=== PATIENT | male | born 1985 | race Two or more races ===

== ENCOUNTER 2019-11-13 10:07 | Inpatient (IN) | payer OTHER ==
[~2019-11-13] VITALS: Ht 170.2 cm; Wt 73.5 kg
--- NOTE | 2019-11-13 10:23 | NUR ---
TO CT PER JUDITH
--- NOTE | 2019-11-13 10:50 | NUR ---
RETURNED FROM CT. C-COLLAR PRESENT, SIDE RAILS UP X2. RESP EVEN & UNLABORED, SPEECH CLEAR, MONITORING EQUIPMENT REAPPLIED. PT ORIENTED TO PERSON, . PT STATED HE TRAVELED TO [place], BUT UNABLE TO RECALL WHEN.
--- NOTE | 2019-11-13 11:12 | NUR ---
PT'S SISTER CALLED FOR PT STATUS. VERBAL PERMISSION FOR RELEASE OF INFO PROVIDED BY PT. GENERAL INFORMATION PROVIDED. SISTER: GONZALEZ ELLISON MD ([employer] WORK[employer]) [birth year]/08/1981, TEL [phone]. PT'S SPOUSE: JANETTE CARBAJAL TEL [phone]
--- NOTE | 2019-11-13 11:25 | NUR ---
PT WAS CLEARED OF C-COLLER PER DR MADRIGAL. PT TO BE ADMITTED.
[2019-11-13] MEDS ORDERED: SODIUM CHLORIDE FLUSH 10ML SYR IVF ONE (11:30)
--- NOTE | 2019-11-13 12:03 | NUR ---
DR BAUGH BS FOR EXAM. PT'S SPOUSE IN ROOM. PT ORIENTED TO NAME, , MONTH, WHEN HE WENT TO [facility] ([place]). C/O BHARDWAJ. PER DR BAUGH, PT MAY HAVE ICE CHIPS AND SMALL SIPS OF WATER. VO: MORPHINE 2-4MG/HR PRN PAIN.
[2019-11-13 12:18] LABS: BASOPHILS # (AUTO) 0.02 x10^3/uL (0-0.1); BASOPHILS % (AUTO) 0 % (0-1); EOSINOPHILS # (AUTO) 0.04 x10^3/uL (0-0.4); EOSINOPHILS % (AUTO) 0 % (1-7); LYMPHOCYTES # (AUTO) 1.48 x10^3/uL (1-3.4); LYMPHOCYTES % (AUTO) 12 % (22-44); MD NO; MEAN CORPUSCULAR HEMOGLOBIN 27.6 pg (27.5-34.5); MEAN CORPUSCULAR HGB CONC 33.4 g/dL (33.2-36.2); MEAN CORPUSCULAR VOLUME 82.7 fL (81-97); MEAN PLATELET VOLUME 8.7 fL (7.4-10.4); MONOCYTES # (AUTO) 0.57 x10^3/uL (0.2-0.8); MONOCYTES % (AUTO) 5 % (2-9); NEUTROPHILS # (AUTO) 9.78 x10^3/uL (1.8-6.8); NEUTROPHILS % (AUTO) 82 % (42-75); PLATELET COUNT 231 x10^3/uL (130-400); RED BLOOD COUNT 5.64 x10^6/uL (4.38-5.82)
[2019-11-13 12:27] LABS: INTERNATIONAL NORMALIZED RATIO 1.07 (0.93-1.1); PROTHROMBIN TIME 11.3 Seconds (9.6-11.5)
[2019-11-13 12:31] LABS: ALANINE AMINOTRANSFERASE 25 U/L (12-78); ALBUMIN 3.7 g/dL (3.4-5.0); ANION GAP 6 mmol/L (5-15); CHLORIDE 107 mmol/L (98-107)
[2019-11-13 12:34] LABS: ALKALINE PHOSPHATASE 98 U/L (45-117); BILIRUBIN,TOTAL 0.5 mg/dL (0.2-1.0); CREATININE 0.99 mg/dL (0.7-1.3); TOTAL PROTEIN 7.5 g/dL (6.4-8.2)
[2019-11-13] MEDS ORDERED: MORPHINE SULFATE 4 MG/ML, 1ML ONE (12:49)
[2019-11-13] MEDS ORDERED: ACETAMINOPHEN 325 MG TABLET PO PRN (13:00)
[2019-11-13] MEDS ORDERED: ENALAPRILAT 1.25 MG/ML, 2ML IVPush PRN (13:00)
[2019-11-13] MEDS ORDERED: PLEASE ENTER ALLERGIES MC SCH (13:00)
[2019-11-13] MEDS ORDERED: ACETAMINOPHEN 325 MG TABLET PO ONE (13:00)
[2019-11-13] MEDS ORDERED: LABETALOL 5MG/ML, 20ML IVPush PRN (13:00)
[2019-11-13] MEDS ORDERED: MORPHINE SULFATE 4 MG/ML, 1ML IVPush ONE (13:00)
[2019-11-13] MEDS ORDERED: ONDANSETRON 2MG/ML, 2ML IVPush PRN (13:00)
--- NOTE | 2019-11-13 13:03 | NUR ---
VO DR MADRIGAL: GIVE MORPHINE NOW INSTEAD OF TYLENOL.
--- NOTE | 2019-11-13 13:26 | NUR ---
CALLED CCU TO GIVE REPORT. UNIT WILL CONFIRM PT ROOM AND RECEIVING RN AND CALL THIS RN BACK.
--- NOTE | 2019-11-13 13:45 | NUR ---
PT SLEEPING, RESP EVEN & UNLABORED. SPOUSE IN ROOM; NOTIFIED OF TEMPORARY HOLD STATUS.
--- NOTE | 2019-11-13 14:33 | NUR ---
PT SLEEPING; EASILY AWAKENED, OPENED EYES AND ANSWERED QUESTIONS. TO CT PER JUDITH
--- NOTE | 2019-11-13 16:20 | NUR ---
CALL FROM ED,RECEIVING RN RE: PT STATUS. RN REQUESTED CALL BACK IN 30 MINS W/ PT REPORT DUE TO JUST RECEIVING A DIFFERENT CCU PATIENT. PT CURRENTLY IN STABLE CONDITION; SPOUSE IN ROOM.
[2019-11-13] MEDS: SODIUM CHLORIDE 0.9% 1,000 ML IV SCH ×2 (16:31→23:33)
--- NOTE | 2019-11-13 16:32 | NUR ---
PT ASLEEP; EASILY AWAKENED. A&OX4, REMEMBERS FALLING WHILE SKATEBOARDING, RESP EVEN & UNLABORED, SPEECH CLEAR, SKIN WNL, MONITORING CONTINUING: NSR. NS HUNG, INFUSING AT 150ML/HR VIA PUMP; IV SITE PATENT.
--- NOTE | 2019-11-13 16:57 | NUR ---
PT REPORT TO SHAN WARD FOR ROOM 546
[2019-11-14 07:23] LABS: ANION GAP 5 mmol/L (5-15); CALCIUM 8.4 mg/dL (8.5-10.1); CHLORIDE 107 mmol/L (98-107); CREATININE 0.78 mg/dL (0.7-1.3)
[2019-11-14] MEDS: SODIUM CHLORIDE 0.9% 1,000 ML IV SCH ×3 (08:06→22:15)
[2019-11-14] MEDS: LEVETIRACETAM 500 MG TABLET PO SCH ×2 (10:54→20:08)
[2019-11-14 12:49] VITALS: BP 107/67
[2019-11-14 20:00] VITALS: BP 108/68
[2019-11-15 00:55] VITALS: BP 107/65
[2019-11-15] MEDS: SODIUM CHLORIDE 0.9% 1,000 ML IV SCH ×2 (05:28→11:20)
[2019-11-15 06:56] VITALS: BP 106/66
[2019-11-15] MEDS: LEVETIRACETAM 500 MG TABLET PO SCH (08:32)
[2019-11-15] MEDS ORDERED: LEVE500T53 PO (11:42)
[2019-11-15 13:04] VITALS: BP 102/63
== END 2019-11-15 13:50 | disposition home or self-care (01) | DRG 82 ==
LOC: ED 11:25 → EDIP 11:26 → ED 11:33 → CCU 17:15 → 4WST 11-14 12:40
PROVIDERS: ADMIT Internal Medicine; ATTEND Family Medicine
DX: S06.5X9A Traumatic subdural hemorrhage with loss of consciousness of unspecified duration, initial encounter (principal); G93.5 Compression of brain; R41.2 Retrograde amnesia; V00.131A Fall from skateboard, initial encounter; Y93.51 Activity, roller skating (inline) and skateboarding; Y92.89 Other specified places as the place of occurrence of the external cause; Z82.49 Family history of ischemic heart disease and other diseases of the circulatory system; Z83.3 Family history of diabetes mellitus; Y99.8 Other external cause status
CPT/HCPCS: 36415; 70450; 72125; 80048; 80053; 85025; 85610; 87081; 96374; 99285; G0378; J2270; J7030

== ENCOUNTER 2019-11-17 20:26 | Inpatient (IN) | payer OTHER ==
[~2019-11-17] VITALS: Ht 170.2 cm; Wt 67.8 kg
[~2019-11-17 20:26] MED LIST: LEVE500T53 PO
[2019-11-17] MEDS ORDERED: PERCOCET (20:45)
[2019-11-17] MEDS ORDERED: HYDR-3240 PO (20:45)
--- NOTE | 2019-11-17 20:45 | NUR ---
TASK RN: JODY MITCHELL FROM HOME IN MODERATE DISTRESS SECONDARY TO CO 9/10 HEADACHE. PT DC'D FROM [facility] FOLLOWING FALL FROM [place] [employer]. NO SURGICAL INTERVENTION WITH ADMITTED CT SHOWED EVIDENCE OF IMPROVEMENT. SO STATES PT HAS HAD BHARDWAJ SINCE DC. +PHOTOPHOBIA/PHONOPHOBIA, DENIES N/V. GROSS NEURO INTACT. UNABLE TO EXAMINE PUPIL RESPONSE PT IS SENSITIVE TO LIGHT IMPROVED BHARDWAJ LAST NIGHT WITH TRAMADOL, NO CHANGE TODAY WITH NORCO OR PERCOCET. SO IS CONCERNED THAT PATIENT MISSED [address] DOSE. PRIMARY RN AWARE. REPORT TO PRIMARY RN JOSHUA.
--- NOTE | 2019-11-17 21:16 | NUR ---
IN ROOM FOR EVAL.
[2019-11-17] MEDS ORDERED: ONDANSETRON 2MG/ML, 2ML IVPush ONE (21:30)
[2019-11-17] MEDS ORDERED: ONDANSETRON 2MG/ML, 2ML ONE (21:32)
[2019-11-17] MEDS ORDERED: MORPHINE SULFATE 4 MG/ML, 1ML ONE ×2 (21:32→23:25)
[2019-11-17] MEDS: MORPHINE SULFATE 4 MG/ML, 1ML IVPush PRN ×2 (21:34→23:33)
[2019-11-17 21:53] LABS: BASOPHILS # (AUTO) 0.11 x10^3/uL (0-0.1); BASOPHILS % (AUTO) 1 % (0-1); EOSINOPHILS # (AUTO) 0.02 x10^3/uL (0-0.4); EOSINOPHILS % (AUTO) 0 % (1-7); LYMPHOCYTES # (AUTO) 1.38 x10^3/uL (1-3.4); LYMPHOCYTES % (AUTO) 12 % (22-44); MD NO; MEAN CORPUSCULAR HEMOGLOBIN 27.5 pg (27.5-34.5); MEAN CORPUSCULAR HGB CONC 33.6 g/dL (33.2-36.2); MEAN CORPUSCULAR VOLUME 81.9 fL (81-97); MEAN PLATELET VOLUME 7.7 fL (7.4-10.4); MONOCYTES # (AUTO) 0.76 x10^3/uL (0.2-0.8); MONOCYTES % (AUTO) 7 % (2-9); NEUTROPHILS # (AUTO) 8.85 x10^3/uL (1.8-6.8); NEUTROPHILS % (AUTO) 80 % (42-75); PLATELET COUNT 257 x10^3/uL (130-400); RED BLOOD COUNT 5.32 x10^6/uL (4.38-5.82); RED CELL DISTRIBUTION WIDTH 12.5 % (9.4-14.8)
[2019-11-17] MEDS ORDERED: LEVETIRACETAM 500 MG in SODIUM CHLORIDE 0.9% 100 ML IV ONE (22:00)
[2019-11-17 22:02] LABS: ALBUMIN 3.4 g/dL (3.4-5.0); ANION GAP 6 mmol/L (5-15); CALCIUM 9.1 mg/dL (8.5-10.1); CHLORIDE 103 mmol/L (98-107); CREATININE 0.78 mg/dL (0.7-1.3)
--- NOTE | 2019-11-17 22:53 | NUR ---
PT RESTING ON GURNEY W/ CALL LIGHT IN REACH. CONNECTED TO ALL MONITORING, VS STABLE. SIDE RAILS UPX2, FAMILY AT BEDSIDE. PT IS UP FOR RECHECK AT THIS TIME. DENIES FURTHER NEEDS.
--- NOTE | 2019-11-17 23:03 | NUR ---
NEURO SURG PAGED
[2019-11-18] MEDS ORDERED: ONDANSETRON ODT 4 MG PO PRN
[2019-11-18] MEDS ORDERED: BISACODYL 10 MG SUPP PR PRN
[2019-11-18] MEDS ORDERED: POLYETHYLENE GLYCOL 17 GM PACKET PO PRN
--- NOTE | 2019-11-18 00:10 | NUR ---
ADMITTING RN REQ DIFFERENT PAIN MEDS TO HAVE PRN BECAUSE PER PT NORCO PROVIDED NO RELIEF TODAY. SPOKE WITH DANIEL ADMITTING PROVIDER AND HE STATES HE WILL PUT IN ANOTHER ORDER.
[2019-11-18 00:35] VITALS: BP 131/82
[2019-11-18] MEDS: HYDROcodone/APAP 5/325 TABLET PO PRN ×2 (04:43→05:43)
[2019-11-18 07:15] VITALS: BP 113/72
[2019-11-18] MEDS ORDERED: SENNA/DOCUSATE TABLET PO SCH (09:00)
[2019-11-18] MEDS: SODIUM CHLORIDE FLUSH 10ML SYR IVF SCH ×3 (09:00→20:44)
[2019-11-18] MEDS: BUTALB/APAP/CAFFEINE 50MG/325MG/40MG PO PRN ×2 (09:42→17:54)
[2019-11-18] MEDS: LEVETIRACETAM 500 MG TABLET PO SCH ×2 (09:42→20:43)
[2019-11-18] MEDS ORDERED: SUMATRIPTAN 6MG/0.5ML SQ PRN (14:30)
[2019-11-18] MEDS ORDERED: VALPROATE SODIUM 500 MG in SODIUM CHLORIDE 0.9% 100 ML IV SCH (15:00)
[2019-11-18 15:39] LABS: INTERNATIONAL NORMALIZED RATIO 1.07 (0.93-1.1); PROTHROMBIN TIME 11.4 Seconds (9.6-11.5)
[2019-11-18 19:32] VITALS: BP 135/86
[2019-11-19] MEDS: BUTALB/APAP/CAFFEINE 50MG/325MG/40MG PO PRN ×4 (00:01→18:18)
[2019-11-19 01:15] VITALS: BP 110/72
[2019-11-19 05:28] LABS: BASOPHILS # (AUTO) 0.02 x10^3/uL (0-0.1); BASOPHILS % (AUTO) 0 % (0-1); EOSINOPHILS # (AUTO) 0.03 x10^3/uL (0-0.4); EOSINOPHILS % (AUTO) 0 % (1-7); LYMPHOCYTES # (AUTO) 1.08 x10^3/uL (1-3.4); LYMPHOCYTES % (AUTO) 14 % (22-44); MD NO; MEAN CORPUSCULAR HEMOGLOBIN 27.7 pg (27.5-34.5); MEAN CORPUSCULAR HGB CONC 33.9 g/dL (33.2-36.2); MEAN CORPUSCULAR VOLUME 81.7 fL (81-97); MEAN PLATELET VOLUME 8.2 fL (7.4-10.4); MONOCYTES # (AUTO) 0.19 x10^3/uL (0.2-0.8); MONOCYTES % (AUTO) 3 % (2-9); NEUTROPHILS # (AUTO) 6.29 x10^3/uL (1.8-6.8); NEUTROPHILS % (AUTO) 83 % (42-75); PLATELET COUNT 263 x10^3/uL (130-400); RED BLOOD COUNT 5.34 x10^6/uL (4.38-5.82); RED CELL DISTRIBUTION WIDTH 12.6 % (9.4-14.8)
[2019-11-19 05:42] LABS: ANION GAP 7 mmol/L (5-15); CALCIUM 9.2 mg/dL (8.5-10.1); CHLORIDE 102 mmol/L (98-107); CREATININE 0.94 mg/dL (0.7-1.3)
[2019-11-19 07:45] VITALS: BP 99/65
[2019-11-19] MEDS: LEVETIRACETAM 500 MG TABLET PO SCH ×2 (09:03→20:58)
[2019-11-19] MEDS: SODIUM CHLORIDE FLUSH 10ML SYR IVF SCH ×2 (09:03→20:59)
[2019-11-19] MEDS: SENNA/DOCUSATE TABLET PO PRN (09:03)
[2019-11-19] MEDS: LACTATED RINGERS 1,000 ML IV SCH (09:04)
[2019-11-19] MEDS ORDERED: BUPIVACAINE/PF-EPI 0.5% 1:200K ONE (09:39)
[2019-11-19] MEDS ORDERED: BACITRACIN OINT 500U/GM, 15 GM ONE (09:39)
[2019-11-19] MEDS ORDERED: THROMBIN 20,000 UNIT VIAL TP ONE (09:39)
[2019-11-19] MEDS ORDERED: BACITRACIN 50,000 UNIT ONE (09:39)
[2019-11-19] MEDS: SODIUM CHLORIDE 1 GM TABLET PO SCH ×3 (10:00→20:58)
[2019-11-19] MEDS: D5%-0.9% NACL+KCL 20MEQ 1,000 ML IV SCH ×2 (10:25→18:15)
[2019-11-19 13:00] VITALS: BP 117/83
[2019-11-19] MEDS: GABAPENTIN 300 MG CAPSULE PO SCH ×2 (16:06→20:58)
[2019-11-19 18:56] VITALS: BP 104/66
[2019-11-19] MEDS: AMITRIPTYLINE 25 MG TABLET PO SCH (20:58)
[2019-11-20 00:41] VITALS: BP 102/70
[2019-11-20] MEDS: BUTALB/APAP/CAFFEINE 50MG/325MG/40MG PO PRN ×3 (00:59→17:27)
[2019-11-20] MEDS: LACTATED RINGERS 1,000 ML IV SCH (01:40)
[2019-11-20] MEDS: D5%-0.9% NACL+KCL 20MEQ 1,000 ML IV SCH ×3 (03:00→20:00)
[2019-11-20 04:55] LABS: ANION GAP 5 mmol/L (5-15); CALCIUM 8.1 mg/dL (8.5-10.1); CHLORIDE 111 mmol/L (98-107); CREATININE 0.88 mg/dL (0.7-1.3)
[2019-11-20 07:50] VITALS: BP 121/82
[2019-11-20] MEDS: SODIUM CHLORIDE 1 GM TABLET PO SCH ×3 (08:06→20:01)
[2019-11-20] MEDS: LEVETIRACETAM 500 MG TABLET PO SCH ×2 (08:06→20:01)
[2019-11-20] MEDS: GABAPENTIN 300 MG CAPSULE PO SCH ×3 (08:06→20:01)
[2019-11-20] MEDS: SODIUM CHLORIDE FLUSH 10ML SYR IVF SCH ×2 (08:06→20:01)
[2019-11-20 14:22] VITALS: BP 130/180
[2019-11-20 18:40] VITALS: BP 115/77
[2019-11-20] MEDS: AMITRIPTYLINE 25 MG TABLET PO SCH (20:01)
[2019-11-21 01:23] VITALS: BP 116/83
[2019-11-21] MEDS: BUTALB/APAP/CAFFEINE 50MG/325MG/40MG PO PRN ×4 (01:25→21:59)
[2019-11-21] MEDS: D5%-0.9% NACL+KCL 20MEQ 1,000 ML IV SCH (03:48)
[2019-11-21 07:40] VITALS: BP 107/73
[2019-11-21] MEDS: SODIUM CHLORIDE 1 GM TABLET PO SCH ×3 (07:42→21:52)
[2019-11-21] MEDS: GABAPENTIN 300 MG CAPSULE PO SCH ×3 (07:42→21:52)
[2019-11-21] MEDS: LEVETIRACETAM 500 MG TABLET PO SCH ×2 (07:42→21:52)
[2019-11-21] MEDS: SODIUM CHLORIDE FLUSH 10ML SYR IVF SCH ×2 (07:44→21:52)
[2019-11-21 12:40] VITALS: BP 107/70
[2019-11-21] MEDS: SENNA/DOCUSATE TABLET PO PRN (17:37)
[2019-11-21 18:22] VITALS: BP 110/73
[2019-11-21] MEDS: AMITRIPTYLINE 25 MG TABLET PO SCH (21:52)
[2019-11-22 01:22] VITALS: BP 106/68
[2019-11-22 06:25] LABS: BASOPHILS # (AUTO) 0.04 x10^3/uL (0-0.1); BASOPHILS % (AUTO) 0 % (0-1); EOSINOPHILS # (AUTO) 0.15 x10^3/uL (0-0.4); EOSINOPHILS % (AUTO) 2 % (1-7); LYMPHOCYTES # (AUTO) 2.89 x10^3/uL (1-3.4); LYMPHOCYTES % (AUTO) 30 % (22-44); MD NO; MEAN CORPUSCULAR HEMOGLOBIN 27.3 pg (27.5-34.5); MEAN CORPUSCULAR VOLUME 82.6 fL (81-97); MEAN PLATELET VOLUME 8.5 fL (7.4-10.4); MONOCYTES # (AUTO) 0.71 x10^3/uL (0.2-0.8); MONOCYTES % (AUTO) 7 % (2-9); NEUTROPHILS # (AUTO) 5.79 x10^3/uL (1.8-6.8); NEUTROPHILS % (AUTO) 61 % (42-75); PLATELET COUNT 303 x10^3/uL (130-400); RED BLOOD COUNT 5.73 x10^6/uL (4.38-5.82)
[2019-11-22 06:30] LABS: ALBUMIN 3.6 g/dL (3.4-5.0); ANION GAP 4 mmol/L (5-15); CALCIUM 9.4 mg/dL (8.5-10.1); CHLORIDE 106 mmol/L (98-107)
[2019-11-22 06:35] LABS: ALANINE AMINOTRANSFERASE 34 U/L (12-78); ALKALINE PHOSPHATASE 108 U/L (45-117); BILIRUBIN,TOTAL 0.4 mg/dL (0.2-1.0); CREATININE 1.03 mg/dL (0.7-1.3); TOTAL PROTEIN 7.9 g/dL (6.4-8.2)
[2019-11-22] MEDS: LEVETIRACETAM 500 MG TABLET PO SCH (08:33)
[2019-11-22] MEDS: SODIUM CHLORIDE 1 GM TABLET PO SCH (08:33)
[2019-11-22] MEDS: GABAPENTIN 300 MG CAPSULE PO SCH (08:33)
[2019-11-22] MEDS: SODIUM CHLORIDE FLUSH 10ML SYR IVF SCH (08:39)
[2019-11-22 08:49] VITALS: BP 112/78
[2019-11-22] MEDS ORDERED: DIAZEPAM 5 MG/ML, 2ML IV ONE (09:30)
[2019-11-22] MEDS ORDERED: BUTALB/APAP/CAFFEINE 50MG/325MG/40MG PO PRN (09:30)
[2019-11-22] MEDS ORDERED: D5%-0.9% NACL+KCL 20MEQ 1,000 ML IV SCH (09:30)
[2019-11-22] MEDS ORDERED: ONDA4TAB13 PO (11:23)
[2019-11-22] MEDS ORDERED: SODI1TAB PO (11:23)
[2019-11-22] MEDS ORDERED: DIAZ2TAB PO (11:23)
[2019-11-22] MEDS ORDERED: LEVE500T53 PO (11:23)
[2019-11-22] MEDS ORDERED: BUTA-177 PO (11:23)
[2019-11-22 12:28] VITALS: BP 110/75
[2019-11-22] MEDS ORDERED: AMIT25TA PO (12:55)
== END 2019-11-22 14:35 | disposition home or self-care (01) | DRG 103 ==
LOC: ED 11-18 00:01 → EDIP 11-18 00:12 → 4WST 11-18 00:30
PROVIDERS: ADMIT Family Medicine; ATTEND Emergency Medicine
DX: G44.309 Post-traumatic headache, unspecified, not intractable (principal); E87.1 Hypo-osmolality and hyponatremia; S06.5X0D Traumatic subdural hemorrhage without loss of consciousness, subsequent encounter; F07.81 Postconcussional syndrome; G43.909 Migraine, unspecified, not intractable, without status migrainosus; G44.209 Tension-type headache, unspecified, not intractable; G44.89 Other headache syndrome; Y93.51 Activity, roller skating (inline) and skateboarding; Z82.49 Family history of ischemic heart disease and other diseases of the circulatory system; Z83.3 Family history of diabetes mellitus; V00.131D Fall from skateboard, subsequent encounter
CPT/HCPCS: 36415; 70450; 70551; 80048; 80053; 82040; 84295; 85025; 85610; 85730; 93005; 95819; 96365; 96374; 96375; 96376; G0378; J1953; J2405; J2930; J3360; J2270; J3030; J3480; J7120